=== PATIENT | male | born 1945 | race Caucasian/White ===

== ENCOUNTER 2016-10-03 12:00 | Outpatient (RCR) | payer OTHER | END 2016-10-28 | disposition home or self-care (01) | LOC: PTY 12:00 | DX: L97.529 Non-pressure chronic ulcer of other part of left foot with unspecified severity (principal); Z91.81 History of falling; E11.9 Type 2 diabetes mellitus without complications; I10 Essential (primary) hypertension; M19.012 Primary osteoarthritis, left shoulder; Z86.59 Personal history of other mental and behavioral disorders ==

== ENCOUNTER 2016-10-31 12:30 | Outpatient (RCR) | payer OTHER | END 2016-11-25 | disposition home or self-care (01) | LOC: PTY 12:30 | DX: Z91.81 History of falling (principal); E11.29 Type 2 diabetes mellitus with other diabetic kidney complication ==

== ENCOUNTER 2016-11-28 13:50 | Outpatient (RCR) | payer OTHER | END 2016-12-26 | disposition home or self-care (01) | LOC: PTY 13:50 | DX: E11.29 Type 2 diabetes mellitus with other diabetic kidney complication (principal); Z91.81 History of falling; L97.529 Non-pressure chronic ulcer of other part of left foot with unspecified severity; E11.40 Type 2 diabetes mellitus with diabetic neuropathy, unspecified; I10 Essential (primary) hypertension; M19.012 Primary osteoarthritis, left shoulder ==

== ENCOUNTER 2017-01-06 13:00 | Outpatient (RCR) | payer OTHER | END 2017-01-25 | disposition home or self-care (01) | LOC: PTY 13:00 | DX: Z91.81 History of falling (principal) ==

== ENCOUNTER 2017-03-02 14:45 | Outpatient (RCR) | payer OTHER | END 2017-03-27 | disposition home or self-care (01) | LOC: PTY 14:45 | DX: R26.81 Unsteadiness on feet (principal); Z91.81 History of falling ==

== ENCOUNTER 2017-04-01 15:04 | Outpatient (RCR) | payer OTHER | END 2017-04-27 | disposition home or self-care (01) | LOC: PTY 15:04 | DX: R26.81 Unsteadiness on feet (principal); Z91.81 History of falling ==

== ENCOUNTER 2017-12-29 14:00 | Outpatient (RCR) | payer OTHER | END 2018-01-25 | disposition home or self-care (01) | LOC: PTY 14:00 | PROVIDERS: ATTEND Internal Medicine | DX: R26.89 Other abnormalities of gait and mobility (principal) ==

== ENCOUNTER 2018-02-04 08:15 | Outpatient (RCR) | payer OTHER | END 2018-02-25 | disposition home or self-care (01) | LOC: PTY 08:15 | PROVIDERS: ATTEND Internal Medicine | DX: R26.89 Other abnormalities of gait and mobility (principal) ==

== ENCOUNTER 2018-03-10 13:30 | Outpatient (RCR) | payer OTHER | END 2018-03-27 | disposition home or self-care (01) | LOC: PTY 13:30 | PROVIDERS: ATTEND Internal Medicine | DX: R26.89 Other abnormalities of gait and mobility (principal) ==

== ENCOUNTER 2018-05-03 13:15 | Outpatient (RCR) | payer OTHER | END 2018-05-28 | disposition home or self-care (01) | LOC: PTY 13:15 | PROVIDERS: ATTEND Internal Medicine | DX: R26.89 Other abnormalities of gait and mobility (principal) ==

== ENCOUNTER 2018-06-10 13:40 | Outpatient (RCR) | payer OTHER | END 2018-06-27 | disposition home or self-care (01) | LOC: PTY 13:40 | PROVIDERS: ATTEND Internal Medicine | DX: R26.89 Other abnormalities of gait and mobility (principal) ==

== ENCOUNTER 2018-07-01 12:15 | Outpatient (RCR) | payer OTHER | END 2018-07-28 | disposition home or self-care (01) | LOC: PTY 12:15 | PROVIDERS: ATTEND Internal Medicine | DX: R26.89 Other abnormalities of gait and mobility (principal) ==

== ENCOUNTER 2018-08-03 15:15 | Outpatient (RCR) | payer OTHER | END 2018-08-27 | disposition home or self-care (01) | LOC: PTY 15:15 | PROVIDERS: ATTEND Internal Medicine | DX: R26.89 Other abnormalities of gait and mobility (principal) ==